=== PATIENT | male | born 1975 | race Two or more races ===

== ENCOUNTER 2020-10-26 22:13 | Emergency (ER) | payer SELFPAY ==
[~2020-10-26] VITALS: Ht 180.3 cm; Wt 118.0 kg
[2020-10-26] MEDS ORDERED: MORPHINE SULFATE 4 MG/ML, 1ML IVPush PRN (22:30)
[2020-10-26] MEDS ORDERED: SODIUM CHLORIDE FLUSH 10ML SYR IVF ONE (22:30)
[2020-10-26] MEDS ORDERED: SODIUM CHLORIDE 0.9% 1,000ML IVBOLUS ONE (22:30)
--- NOTE | 2020-10-26 22:58 | NUR ---
Pt not in room, is at ultrasound. Will start IV and labs when returns.
[2020-10-26] MEDS ORDERED: MORPHINE SULFATE 4 MG/ML, 1ML ONE (23:01)
--- NOTE | 2020-10-26 23:02 | NUR ---
PT TO ROOM FROM
--- NOTE | 2020-10-26 23:17 | NUR ---
Pt now back from ultrasound, IV started bloods drawn and sent, to cr monitor. Pt very anxious, says drinks 3-4 mixed drinks night and 1-2 beers. Says pain between right chest and abdomen, worse with inspiration. PCXR done. IVF infusing, medicated with morphine per order. Side rails up, call zamarripa in reach. Requested urine.
[2020-10-26 23:28] LABS: BASOPHILS % (AUTO) 1 % (0-1); EOSINOPHILS % (AUTO) 2 % (1-7); LYMPHOCYTES % (AUTO) 23 % (22-44); MEAN CORPUSCULAR HEMOGLOBIN 28.7 pg (27.5-34.5); MEAN CORPUSCULAR HGB CONC 33.5 g/dL (33.2-36.2); MEAN PLATELET VOLUME 8.9 fL (7.4-10.4); MONOCYTES % (AUTO) 7 % (2-9); NEUTROPHILS % (AUTO) 67 % (42-75); PLATELET COUNT 216 x10^3/uL (130-400); RED BLOOD COUNT 5.69 x10^6/uL (4.38-5.82); RED CELL DISTRIBUTION WIDTH 14.7 % (9.4-14.8)
[2020-10-26 23:29] LABS: MD NO
--- NOTE | 2020-10-26 23:30 | NUR ---
Pt reports morphine helped a little, pt up ambulatory to bathroom. Refuses to use urinal in room. Steady gait, VSS.
[2020-10-26 23:37] LABS: ALANINE AMINOTRANSFERASE 51 U/L (12-78); ALBUMIN 3.6 g/dL (3.4-5.0); ANION GAP 7 mmol/L (5-15); CALCIUM 8.4 mg/dL (8.5-10.1); CHLORIDE 109 mmol/L (98-107); CREATININE 0.79 mg/dL (0.7-1.3)
[2020-10-26 23:42] LABS: ALKALINE PHOSPHATASE 92 U/L (45-117); BILIRUBIN,TOTAL 0.3 mg/dL (0.2-1.0); TROPONIN I < 0.015 ng/mL (0.000-0.045)
[2020-10-27 00:08] LABS: MICROSCOPIC INDICATED
[2020-10-27 00:09] VITALS: BP 145/83
--- NOTE | 2020-10-27 00:09 | NUR ---
Pt to be d/c, IVF infused. VSS. IV dc cath intact. Pt stable. Not driving.
== END 2020-10-27 00:43 | disposition home or self-care (01) ==
LOC: ED 10-27 00:15
DX: R10.11 Right upper quadrant pain (principal); F10.10 Alcohol abuse, uncomplicated; R06.02 Shortness of breath; R00.0 Tachycardia, unspecified; Y90.0 Blood alcohol level of less than 20 mg/100 ml
CPT/HCPCS: 36415; 71045; 76700; 80053; 80320; 81001; 83690; 84484; 85025; 85379; 93005; 96374; 99285; J2270; J7030; G0480

== ENCOUNTER 2020-11-29 11:38 | Emergency (ER) | payer SELFPAY ==
[~2020-11-29] VITALS: Ht 170.2 cm; Wt 117.7 kg
--- NOTE | 2020-11-29 12:21 | NUR ---
PT STATES THE LAST WEEK HAS HAD FATIGUE SWEATS AND CHILLS WITH NAUSEA AND COUGH. HE WENT TO WORK AND COULDN'T KEEP HIS EYES OPEN BEING VERY TIRED.
--- NOTE | 2020-11-29 12:23 | NUR ---
PROVIDER AT BEDSIDE. AWAITING NEW ORDERS.
[2020-11-29] MEDS ORDERED: ACETAMINOPHEN 325 MG TABLET ONE (12:43)
[2020-11-29] MEDS ORDERED: ACETAMINOPHEN 325 MG TABLET PO ONE (13:00)
[2020-11-29] MEDS ORDERED: SODIUM CHLORIDE FLUSH 10ML SYR IVF ONE (13:00)
[2020-11-29] MEDS ORDERED: SODIUM CHLORIDE 0.9% 1,000ML IVBOLUS ONE ×2 (13:00→14:00)
[2020-11-29 13:21] LABS: BASOPHILS % (AUTO) 0 % (0-1); EOSINOPHILS % (AUTO) 1 % (1-7); LYMPHOCYTES % (AUTO) 7 % (22-44); MEAN CORPUSCULAR HEMOGLOBIN 29.5 pg (27.5-34.5); MEAN CORPUSCULAR HGB CONC 34.5 g/dL (33.2-36.2); MEAN PLATELET VOLUME 8.3 fL (7.4-10.4); MONOCYTES % (AUTO) 7 % (2-9); NEUTROPHILS % (AUTO) 85 % (42-75); PLATELET COUNT 230 x10^3/uL (130-400); RED BLOOD COUNT 5.18 x10^6/uL (4.38-5.82); RED CELL DISTRIBUTION WIDTH 14.4 % (9.4-14.8)
[2020-11-29 13:28] LABS: ALANINE AMINOTRANSFERASE 29 U/L (12-78); ALBUMIN 3.4 g/dL (3.4-5.0); ANION GAP 4 mmol/L (5-15); CALCIUM 8.5 mg/dL (8.5-10.1); CHLORIDE 105 mmol/L (98-107)
[2020-11-29 13:30] LABS: ALKALINE PHOSPHATASE 89 U/L (45-117); BILIRUBIN,TOTAL 0.4 mg/dL (0.2-1.0); CREATININE 0.98 mg/dL (0.7-1.3); TOTAL PROTEIN 7.3 g/dL (6.4-8.2)
[2020-11-29] MEDS ORDERED: DIPHENHYDRAMINE 50 MG/ML, 1ML ONE (14:22)
[2020-11-29] MEDS ORDERED: PROCHLORPERAZINE 5 MG/ML, 2ML ONE (14:22)
[2020-11-29] MEDS ORDERED: KETOROLAC 30 MG/1 ML ONE (14:22)
[2020-11-29] MEDS ORDERED: DIPHENHYDRAMINE 50 MG/ML, 1ML IVPush ONE (14:30)
[2020-11-29] MEDS ORDERED: PROCHLORPERAZINE 5 MG/ML, 2ML IVPush ONE (14:30)
[2020-11-29] MEDS ORDERED: KETOROLAC 30 MG/1 ML IVPush ONE (14:30)
[2020-11-29 17:27] VITALS: BP 111/58
== END 2020-11-29 17:34 | disposition home or self-care (01) ==
LOC: ED 16:20
DX: J02.8 Acute pharyngitis due to other specified organisms (principal); B34.9 Viral infection, unspecified; Z20.822 Contact with and (suspected) exposure to COVID-19
CPT/HCPCS: 36415; 71045; 80053; 83605; 84145; 85025; 87040; 87081; 87147; 87880; 93005; 96361; 96374; 96375; 99285; J0780; J1200; J1885; J7030; U0003; U0005; 87181